=== PATIENT | male | born 1940 | race Caucasian/White ===

== ENCOUNTER 2019-11-16 09:49 | Emergency (ER) | payer OTHER ==
[~2019-11-16] VITALS: Ht 167.6 cm; Wt 68.9 kg
[2019-11-16] MEDS ORDERED: JANUMET 50-5001 EACH PO (10:00)
[2019-11-16] MEDS ORDERED: GLIMEPIRIDE4 MG ×2 (10:00→10:01)
[2019-11-16] MEDS ORDERED: FENOFIBRATE43 MG PO (10:02)
[2019-11-16] MEDS ORDERED: OMEGA-3100 MG PO (10:03)
[2019-11-16] MEDS ORDERED: PEPCID AC20 MG PO (10:05)
== END 2019-11-16 17:18 | disposition designated cancer center or children's hospital (05) ==
LOC: ER 09:49
DX: S02.40EA Zygomatic fracture, right side, initial encounter for closed fracture (principal); S00.83XA Contusion of other part of head, initial encounter; S01.121A Laceration with foreign body of right eyelid and periocular area, initial encounter; S60.212A Contusion of left wrist, initial encounter; W06.XXXA Fall from bed, initial encounter; Y93.89 Activity, other specified; Y92.092 Bedroom in other non-institutional residence as the place of occurrence of the external cause; Y99.8 Other external cause status